=== PATIENT | male | born 1960 | race Caucasian/White ===

== ENCOUNTER 2020-04-05 10:47 | Inpatient (IN) | payer BC ==
[~2020-04-05] VITALS: Ht 177.8 cm; Wt 77.1 kg
[2020-04-05] VITALS (15 sets, daily range): BP systolic 107–153; BP diastolic 58–92
[~2020-04-05 10:47] MED LIST: VANCOMYCIN 1,500MG inj. 1,500 MG in normal saline 500ml IV soln 500 ML IV ONE; ceFAZolin 2gm in dextrose, iso 50 ML IV ONE; famotidine 20mg tablet PO ONE; ringers solution, lacted 1,000 ML IV SCH; vancomycin 1,500 MG in NS 300ml IV soln IV ONE
[2020-04-05] MEDS ORDERED: levoFLOXACIN-Levaquin 250mg/D5 50 ML IV ONE (12:15)
[2020-04-05 12:49] LABS: BASOPHILS % (AUTO) 0.5 % (0-1); EOSINOPHILS # (AUTO) 0.3 X10'3 (0-0.9); EOSINOPHILS % (AUTO) 4.6 % (0-6); LYMPHOCYTES # (AUTO) 1.2 X10'3 (1.1-4.8); LYMPHOCYTES % (AUTO) 17.6 % (21-51); MEAN CORPUSCULAR HEMOGLOBIN 33.3 PG (27.0-31.0); MEAN CORPUSCULAR HGB CONC 34.1 g/dL (33.0-36.5); MEAN CORPUSCULAR VOLUME 97.7 FL (78-98); MEAN PLATELET VOLUME 9.1 FL (7.4-10.4); MONOCYTES # (AUTO) 0.4 X10'3 (0-0.9); MONOCYTES % (AUTO) 5.7 % (2-12); NEUTROPHILS # (AUTO) 4.8 X10'3 (1.8-7.7); NEUTROPHILS % (AUTO) 71.6 % (42-75); PRE OP HEMOGLOBIN 14.7 g/dL (14.0-17.9); PRE OP PLATELET COUNT 234 X10'3 (140-440); RED CELL DISTRIBUTION WIDTH 13.1 % (11.5-14.5)
[2020-04-05] MEDS ORDERED: levoFLOXACIN-Levaquin 750MG/D5 150 ML IV ONE (12:50)
[2020-04-05 13:02] LABS: ALBUMIN 4.1 G/DL (3.4-5.0); ALBUMIN/GLOBULIN RATIO 1.3 (1.1-1.5); ALKALINE PHOSPHATASE 86 IU/L (46-116); BLOOD UREA NITROGEN 16 MG/DL (7-18); BUN/CREATININE RATIO 15.2 (5.4-32.0); CALCIUM 9.1 MG/DL (8.5-10.1); CHLORIDE 109 MMOL/L (99-107); CREATININE 1.05 MG/DL (0.60-1.10); PRE OP ALT 16 U/L (30-65); PRE OP ANION GAP 12 (8-16); PRE OP AST 17 U/L (10-37); PRE OP BILIRUB, TOTAL 0.8 MG/DL (0.0-1.0); PRE OP GLUCOSE 88 MG/DL (70-104); PRE OP POTASSIUM 4.5 MMOL/L (3.4-5.1); PRE OP SODIUM 146 MMOL/L (135-145); TOTAL CARBON DIOXIDE 25.4 MMOL/L (24-32); TOTAL PROTEIN 7.2 G/DL (6.4-8.2); eGFR 73 ML/MIN
[2020-04-05] MEDS ORDERED: NO HOME MEDS (13:12)
[2020-04-05] MEDS ORDERED: cloNIDine hcl/PF 100mcg/ml inj ONE (15:29)
[2020-04-05] MEDS ORDERED: sevoflurane 250ml liquid IH ONE (15:54)
[2020-04-05] MEDS ORDERED: ringers solution, lacted 1,000 ML IV SCH (16:00)
[2020-04-05] MEDS ORDERED: morphine 2 MG/ML inj. syringe IV PRN (16:00)
[2020-04-05] MEDS ORDERED: acetaminophen 1,000mg/100ml IV 100 ML IV PRN (16:00)
[2020-04-05] MEDS ORDERED: morphine 4 MG/ML inj SYRINge IV PRN (16:00)
[2020-04-05] MEDS ORDERED: proCHLORperazine 10 MG/2 ml inj IV PRN (16:00)
[2020-04-05] MEDS ORDERED: ondansetron/PF 4mg/2ml inj IV PRN (16:00)
[2020-04-05] MEDS ORDERED: meperidine/PF 25mg/ml syringe IV PRN ×3 (16:00)
[2020-04-05] MEDS ORDERED: midazolam 2 mg/2 ml injection ONE (16:31)
[2020-04-05] MEDS ORDERED: fentaNYL /PF 50mcg/ml 5ml ampule ONE (16:40)
[2020-04-05] MEDS ORDERED: ondansetron/PF 4mg/2ml inj ONE (16:41)
[2020-04-05] MEDS ORDERED: ROPIVAcaine 0.5% (5mg/ml) 30ml vial ONE (16:41)
[2020-04-05] MEDS ORDERED: dexamethasone sod phosphate 4mg/ml inj. ONE (16:41)
[2020-04-05] MEDS ORDERED: LIDOcaine 2% (20mg/ml) 5ml vial ONE (16:41)
[2020-04-05] MEDS ORDERED: propofol inj 20 ML IV ONE (16:41)
--- NOTE | 2020-04-05 17:52 | NUR ---
Received from OR via JON , accompanied by Anesthesiologist EVELYN and report given by Anesthesiolgist. PATIENT WITH 20G PIV IN RIGHT UE. RUNNING LR AT 100. VSS. PATIENT WITH COBAN DRESSING ON AND BOOT IN PLACE. ELEVATED FOOT. DENIES PAIN. Addendum: 04/05/20 at 1818 by Kane Forbes RN, RN Amended: Links added.
--- NOTE | 2020-04-05 18:57 | NUR ---
PATIENT TAKEN TO WITH ALL BELONGINGS AND HOOKED UP TO MONITORS IN ROOM AND REPORT GIVEN TO RN WHO HAS TAKEN OVER PATIENT CARE.TAHIRA BARRY PRESENT TO ACCEPT CARE AND ASSIST WITH TRANSFER TO BED. DENIES PAIN. FOOT OF BED GATCHED. CARE TURNED OVER. VSS Addendum: 04/05/20 at 1917 by Kane Forbes RN, RN Amended: Links added.
--- NOTE | 2020-04-05 19:00 | NUR ---
Received report from Kane HOFFMANN. Patient came up to floor via gurney. Assisted patient with transfer. Patient's feet gatched. Bed placed in low and locked position. Call light placed within reach.
[2020-04-05] MEDS ORDERED: oxyCODONE/APAP 10/325mg tablet PO PRN ×2 (20:35)
[2020-04-05] MEDS ORDERED: HYDROcodone/acetaminophen 10/325mg tab PO PRN ×2 (20:35)
[2020-04-06 02:00] VITALS: BP 113/62
[2020-04-06] MEDS ORDERED: vancomycin/NS 1 GM ADD-VANTAGE 250 ML IV ONE (04:30)
[2020-04-06 06:00] VITALS: BP 108/62
--- NOTE | 2020-04-06 06:25 | NUR ---
Problems reprioritized. Patient report given, questions answered & plan of care reviewed with Mally HOFFMANN.
[2020-04-06 07:45] LABS: BASOPHILS % (AUTO) 0.2 % (0-1); EOSINOPHILS % (AUTO) 0.3 % (0-6); HEMATOCRIT 39.4 % (42.0-52.0); HEMOGLOBIN 13.3 g/dl (14.0-17.9); LYMPHOCYTES % (AUTO) 9.4 % (21-51); MEAN CORPUSCULAR HEMOGLOBIN 33.2 PG (27.0-31.0); MEAN CORPUSCULAR HGB CONC 33.7 g/dL (33.0-36.5); MEAN CORPUSCULAR VOLUME 98.4 FL (78-98); MEAN PLATELET VOLUME 9.6 FL (7.4-10.4); MONOCYTES # (AUTO) 0.6 X10'3 (0-0.9); MONOCYTES % (AUTO) 5.6 % (2-12); NEUTROPHILS # (AUTO) 8.6 X10'3 (1.8-7.7); NEUTROPHILS % (AUTO) 84.5 % (42-75); PLATELET COUNT 223 X10'3 (140-440); WHITE BLOOD COUNT 10.2 X10'3 (4.5-11.0)
[2020-04-06] MEDS ORDERED: levoFLOXACIN 750MG TABLET PO ONE (07:55)
[2020-04-06 08:27] LABS: ANION GAP 10 (8-16); CHLORIDE 110 MMOL/L (99-107); POTASSIUM 4.1 MMOL/L (3.5-5.1); SODIUM 143 MMOL/L (135-145); TOTAL CARBON DIOXIDE 23.2 MMOL/L (24-32)
[2020-04-06 10:00] VITALS: BP 105/61
--- NOTE | 2020-04-06 15:59 | NUR ---
Patient stable for discharge home today. PICC line placed and patient will follow up with [facility] in [place].
[2020-04-06] MEDS ORDERED: vancomycin/NS 1 GM ADD-VANTAGE 250 ML IV SCH (16:00)
[2020-04-06] MEDS ORDERED: lactobacillus rhamnosus 10,000 MMU CELLS/CAPSULE PO SCH (20:00)
[2020-04-07] MEDS ORDERED: VANCOMYCIN LEVEL IV ONE (15:30)
== END 2020-04-06 15:50 | disposition home or self-care (01) | DRG 902 ==
LOC: PAS 10:47 → ORTHO 4S 17:55
PROVIDERS: ADMIT Orthopaedic Surgery; ATTEND Orthopaedic Surgery
PROC: 3E0T3BZ Introduction of Anesthetic Agent into Peripheral Nerves and Plexi, Percutaneous Approach (ICD-10-PCS; 2020-04-05)
PROC: 0JBP0ZZ Excision of Left Lower Leg Subcutaneous Tissue and Fascia, Open Approach (ICD-10-PCS; principal; 2020-04-05 15:54)
PROC: 02HV33Z Insertion of Infusion Device into Superior Vena Cava, Percutaneous Approach (ICD-10-PCS; 2020-04-06)
PROC: 4A02X4A Measurement of Cardiac Electrical Activity, Guidance, External Approach (ICD-10-PCS; 2020-04-06)
DX: T81.31XA Disruption of external operation (surgical) wound, not elsewhere classified, initial encounter (principal); L03.116 Cellulitis of left lower limb; D62 Acute posthemorrhagic anemia; L02.416 Cutaneous abscess of left lower limb; S86.012A Strain of left Achilles tendon, initial encounter; M76.61 Achilles tendinitis, right leg; S46.111A Strain of muscle, fascia and tendon of long head of biceps, right arm, initial encounter; Y83.8 Other surgical procedures as the cause of abnormal reaction of the patient, or of later complication, without mention of misadventure at the time of the procedure; Y92.89 Other specified places as the place of occurrence of the external cause
CPT/HCPCS: 36573; Z7506; Z7508; 36415; 76937; 80051; 80053; 85025; 87070; 87075; 87077; 87081; 87102; 93005; 97161; 97530; A4215; A4618; A6222; A6449; A6454; A7000; G0378; J0735; J1100; J1956; J2001; J2250; J2405; J2704; J2795; J3010; J3370; J7040; J7120; L4360